=== PATIENT | female | born 1990 | race African-American/Black ===

== ENCOUNTER 2019-12-02 18:25 | Emergency (ER) | payer SELFPAY ==
[~2019-12-02] VITALS: Ht 172.7 cm; Wt 79.0 kg
[2019-12-02 18:35] VITALS: BP 142/88
== END 2019-12-03 01:05 | disposition left against medical advice (07) ==
LOC: ER 18:25
DX: R68.89 Other general symptoms and signs (principal); Z53.21 Procedure and treatment not carried out due to patient leaving prior to being seen by health care provider